=== PATIENT | female | born 1965 | race Caucasian/White ===

== ENCOUNTER 2022-11-20 19:58 | Emergency (ER) | payer OTHER ==
[2022-11-20 20:57] LABS: Urine Blood 1+ (Negative); Urine Glucose Negative (Negative); Urine Protein 2+ (Negative); Urine Specific Gravity >=1.030 (1.005-1.030); Urine pH 5.5 (5.0-7.0)
[2022-11-20 21:06] LABS: Urine Specific Gravity/Preg >1.030 (1.005-1.030)
[2022-11-20 21:07] LABS: Absolute Lymphocytes (CBC) 0.7 K/uL (0.7-4.9); Hematocrit 43.1 % (36.0-45.0); Lymphocytes % 10.9 % (15.3-44.8); MCV 91.9 fL (80-100); MPV 8.7 fL (7.6-11.3)
[2022-11-20] MEDS ORDERED: FAMOTIDINE 20 MG/2 ML VIAL IV ONE (21:07)
[2022-11-20 21:17] LABS: Urine Bacteria None Seen /HPF (<20); Urine Crystals Unidentified Few /HPF (None Seen); Urine Mucus 3+ /HPF (None Seen)
[2022-11-20 21:23] LABS: Albumin 3.8 g/dL (3.4-5.0); Bilirubin Total 0.4 mg/dL (0.2-1.0); Potassium 3.4 mmol/L (3.5-5.1); Protein, Total 7.4 g/dL (6.4-8.2)
[2022-11-20] MEDS ORDERED: METOCLOPRAMIDE 10 MG/2mL INJ ONE (21:41)
[2022-11-20] MEDS ORDERED: KETOROLAC 30 MG/ML INJ ONE (21:41)
[2022-11-20] MEDS ORDERED: DICYCLOMINE HCL 20 MG/2 ML AMP IM ONE (21:42)
[2022-11-20] MEDS ORDERED: NA CHLORIDE 0.9% 1,000 ML ONE (21:42)
--- NOTE | 2022-11-20 22:08 | RAD REPORT ---
EXAM DESCRIPTION: CT - Abdomen Pelvis W Contrast - 11/20/2022 9:42 pm CLINICAL HISTORY: Abdominal pain COMPARISON: none. TECHNIQUE: Computed axial tomography of the abdomen pelvis was obtained. 100 cc Isovue-300 was admin istered intravenously. Oral contrast was not requested which limits evaluation of bowel and appendix All CT scans are performed using dose optimization technique as appropriate and may include automated exposure control or mA/KV adjustment according to patient size. FINDINGS: The liver, spleen, pancreas, adrenal and kidneys appear unremarkable. There is no evidence of diverticulitis. A normal appendix Cholecystectomy. Hysterectomy. No adnexal mass Mild compression L1 vertebral body. Tiny umbilical hernia IMPRESSION: Mild compression L1 vertebral body probably chronic No acute abnormality is displayed
[2022-11-20 23:31] LABS: SARS-COV-2 RT PCR NEGATIVE (NEGATIVE)
--- NOTE | 2022-11-21 00:12 | EDPHYS ---
Physician Documentation [facility] Name: Sara Maxwell Age: 56 yrs Sex: Female : 1965 Arrival Date: 11/20/2022 Time: 20:01 Bed 6 Private MD: ED Physician Caity Cheung HPI: 11/20 20:20 This 56 yrs old Female presents to ER via Ambulatory with complaints of cp Nausea/Vomiting/Diarrhea, Fever. 20:20 The patient presents to the emergency department with nausea, that is moderate, cp vomiting, that is continuous, 20 times today, diarrhea, that is intermittent, 5 times today, abdominal pain, of the abdomen diffusely, described as crampy. Onset: The symptoms/episode began/occurred 3 day(s) ago. Associated signs and symptoms: Pertinent positives: cough. 20:20 Severity of symptoms: in the emergency department the symptoms are unchanged despite cp home interventions. Historical: - Allergies: 20:13 Codeine; pf1 - PMHx: 23:57 None; ke1 - PSHx: 23:57 HYSTERECTOMY; ke1 ROS: 20:25 Constitutional: Positive for body aches, poor PO intake, Negative for fever. cp 20:25 Eyes: Negative for injury, pain, redness, and discharge. cp 20:25 ENT: Negative for drainage from ear(s), ear pain, difficulty swallowing, difficulty handling secretions. 20:25 Cardiovascular: Negative for chest pain, edema, palpitations. 20:25 Respiratory: Positive for cough, Negative for shortness of breath, wheezing. 20:25 Abdomen/GI: Positive for abdominal pain, nausea and vomiting, diarrhea, anorexia, Negative for constipation, hematemesis, black/tarry stool. 20:25 : Negative for urinary symptoms. 20:25 Neuro: Positive for headache, Negative for altered mental status. 20:25 All other systems are negative. Exam: 20:30 Constitutional: The patient appears in no acute distress, alert, awake, cp non-diaphoretic, non-toxic, well developed, well nourished, obese. 20:30 Head/Face: Normocephalic, atraumatic. cp 20:30 Eyes: Periorbital structures: appear normal, Conjunctiva: normal, no exudate, no injection, Sclera: no appreciated abnormality, Lids and lashes: appear normal, bilaterally. 20:30 ENT: External ear(s): are unremarkable, Nose: is normal, Mouth: is normal, Posterior pharynx: is normal, airway is patent, no erythema, no exudate. 20:30 Neck: ROM/movement: is normal, is supple, without pain, no range of motions limitations, no meningismus. 20:30 Chest/axilla: Inspection: normal. 20:30 Cardiovascular: Rate: tachycardic, Rhythm: regular, Edema: is not appreciated, JVD: is not appreciated. 20:30 Respiratory: the patient does not display signs of respiratory distress, Respirations: normal, no use of accessory muscles, no retractions, labored breathing, is not present, Breath sounds: bronchial sounds, that are mild, are heard diffusely, decreased breath sounds, are not appreciated, stridor, is not appreciated, wheezing: is not appreciated. 20:30 Abdomen/GI: Inspection: abdomen appears normal, Bowel sounds: active, all quadrants, Palpation: soft, in all quadrants, moderate abdominal tenderness, in all quadrants, rebound tenderness, is not appreciated, involuntary guarding, is not appreciated. 20:30 Back: CVA tenderness, is absent. 20:30 Neuro: Orientation: to person, place \T\ time. Mentation: is normal, Motor: moves all fours, strength is normal, Sensation: is normal. Vital Signs: 20:07 BP 151 / 93; Pulse 105; Resp 18; Temp 99; Pulse Ox 96% ; Weight 117.93 kg; Height 5 ft. pf1 11 in. (180.34 cm); Pain 10/10; 21:33 BP 132 / 79; Pulse 78; Resp 17; Pulse Ox 97% on R/A; ke1 23:58 BP 117 / 70; Pulse 83; Resp 17; Pulse Ox 98% ; ke1 20:07 Body Mass Index 36.26 (117.93 kg, 180.34 cm) pf1 MDM: 20:13 Patient medically screened. cp 21:00 Differential diagnosis: Nonspecific abd pain, gastritis, cholecystitis, pancreatitis, cp appendicitis, viral gastroenteritis, gastroenteritis. 11/21 00:10 Data reviewed: vital signs, nurses notes, lab test result(s), radiologic studies, CT cp scan, plain films. 00:10 Consideration of Admission/Observation Escalation of care including cp admission/observation considered. I considered the following discharge prescriptions or medication management in the emergency department Medications were administered in the Emergency Department. See MAR. Independent interpretation of the following test(s) in the Emergency Department X-Ray: My interpretation is chest negative for infiltrates. Counseling: I had a detailed discussion with the patient and/or guardian regarding: the historical points, exam findings, and any diagnostic results supporting the discharge/admit diagnosis, lab results, radiology results, to return to the emergency department if symptoms worsen or persist or if there are any questions or concerns that arise at home. Response to treatment: the patient's symptoms have markedly improved after treatment, and as a result, I will discharge patient. Special discussion: Based on the patient's Hx, exam, and Dx evaluation, there is no indication for emergent surgery or inpatient Tx. It is understood by the patient/guardian that if the Sx's persist or worsen they need to return immediately for re-evaluation. 11/20 20:46 Order name: CBC with Diff; Complete Time: 21:29 cp 11/20 21:29 Interpretation: Normal except: ALESIA% 82.0; LYM% 10.9. cp 11/20 20:46 Order name: CMP; Complete Time: 21:29 cp 11/21 00:09 Interpretation: Normal except: K 3.4; CL 108; GLUC 131; GFR 70; AST 14; GLOB 3.6. cp 11/20 20:46 Order name: Lipase; Complete Time: 21:29 cp 11/20 20:46 Order name: Urine Microscopic Only; Complete Time: 21:29 cp 11/20 20:57 Order name: Urine Dipstick-Ancillary; Complete Time: 21:29 EDMS 11/20 20:57 Order name: Urine --Ancillary (enter results); Complete Time: 21:29 tw5 11/20 20:46 Order name: CT Abd/Pelvis - IV Contrast Only; Complete Time: 22:41 cp 11/20 22:42 Order name: XRAY Chest (1 view) cp 11/20 22:42 Order name: COVID-19/FLU A+B; Complete Time: 00:09 cp 11/20 20:46 Order name: IV Saline Lock; Complete Time: 21:01 cp 11/20 20:46 Order name: Labs collected and sent; Complete Time: 21:01 cp 11/20 20:46 Order name: Urine Dipstick-Ancillary (obtain specimen); Complete Time: 20:58 cp 11/20 20:46 Order name: Urine Test (obtain specimen); Complete Time: 20:58 cp 11/20 22:41 Order name: PO challenge; Complete Time: 00:02 cp Administered Medications: 11/20 21:06 Drug: Pepcid (famotidine) 20 mg Route: IVP; Site: left antecubital; ke1 21:53 Drug: Ketorolac 15 mg Route: IVP; Site: left antecubital; ke1 23:04 Follow up: Response: Pain is decreased ke1 21:54 Drug: Reglan (metoCLOPramide) 10 mg Route: IVP; Site: left antecubital; ke1 23:04 Follow up: Response: Nausea is decreased ke1 21:54 Drug: NS 0.9% 1000 ml Route: IV; Rate: 500 ml/hr; Site: left antecubital; ke1 21:54 Drug: Dicyclomine 20 mg Route: IM; Site: left deltoid; ke1 23:04 Follow up: Response: Marked relief of symptoms ke1 11/21 00:19 Drug: Potassium Effervescent Tablet 25 mEq Route: PO; ke1 00:21 Follow up: Response: No adverse reaction ke1 Disposition Summary: 11/21/22 00:11 Discharge Ordered Location: Home cp Problem: new cp Symptoms: have improved cp Condition: Stable cp Diagnosis - Nausea with vomiting, unspecified cp - Diarrhea, unspecified cp - Cough cp Followup: cp - With: Private Physician - When: 2 - 3 days - Reason: Worsening of condition Discharge Instructions: - Discharge Summary Sheet cp - Diarrhea, Adult cp - Nausea and Vomiting, Adult cp - Cough, Adult cp Forms: - Medication Reconciliation Form cp - Thank You Letter cp - Antibiotic Education cp - Prescription Opioid Use cp Prescriptions: - Zofran 4 mg Oral Tablet - take 1 tablet by ORAL route every 12 hours As needed; 20 tablet; Refills: 0, cp Product Selection Permitted - Lomotil 2.5-0.025 mg Oral Tablet - take 1 tablet by ORAL route every 6 hours As needed; 20 tablet; Refills: 0, cp Product Selection Permitted Signatures: Dispatcher [employer] EDEfren Flores PA PA cp Ebrottie, Kouassi RN RN ke1 Naheed keller RN RN pf1 Corrections: (The following items were deleted from the chart) 11/22 00:11 11/20 20:20 The patient presents to the emergency department with nausea, that is cp moderate, vomiting, that is continuous, 20 times today, diarrhea, that is intermittent, 3 times today, abdominal pain, of the abdomen diffusely, described as crampy, cp
--- NOTE | 2022-11-21 00:12 | ER ---
Nurse's Notes [facility] Name: Sara Maxwell Age: 56 yrs Sex: Female : 1965 Arrival Date: 11/20/2022 Time: 20:01 Bed 6 Private MD: Diagnosis: Nausea with vomiting, unspecified;Diarrhea, unspecified;Cough Presentation: 11/20 20:07 Chief complaint: Patient states: Patient C/O cough,onset 3 days with fever started last pf1 night, diarrhea x 5 episodes with vomiting x 20 episodes within the past 24 hours with DUKE pain of 10 and generalized abdominal spasms,onset last night. Coronavirus screen: Vaccine status: Patient reports receiving the 2nd dose of the covid vaccine. Client denies travel out of the [place] in the last 14 days. Client presents with at least one sign or symptom that may indicate coronavirus-19. Ebola Screen: Patient negative for fever greater than or equal to 101.5 degrees Fahrenheit, and additional compatible Ebola Virus Disease symptoms. Initial Sepsis Screen: Does the patient meet any 2 criteria? No. Patient's initial sepsis screen is negative. Does the patient have a suspected source of infection? No. Patient's initial sepsis screen is negative. Risk Assessment: Do you want to hurt yourself or someone else? Patient reports no desire to harm self or others. 20:07 Method Of Arrival: Ambulatory pf1 20:07 Acuity: JENNIFER 3 pf1 20:20 Onset of symptoms was November 17, 2022. ke1 Triage Assessment: 20:20 General: Appears uncomfortable, Behavior is appropriate for age. Pain: Complains of ke1 pain in ABDOMEN Pain currently is 6 out of 10 on a pain scale. at worst was 9 out of 10 on a pain scale. level that patient reports is acceptable is 4 out of 10 on a pain scale. GI: Reports nausea. Historical: - Allergies: 20:13 Codeine; pf1 - PMHx: 23:57 None; ke1 - PSHx: 23:57 HYSTERECTOMY; ke1 Screenin:20 [facility] ED Fall Risk Assessment (Adult) History of falling in the last 3 months, ke1 including since admission No falls in past 3 months (0 pts) Confusion or Disorientation No (0 pts) Intoxicated or Sedated No (0 pts) Impaired Gait No (0 pts) Mobility Assist Device Used No (0 pt) Altered Elimination No (0 pt) Score/Fall Risk Level 0 - 2 = Low Risk Oriented to surroundings, Maintained a safe environment. Abuse screen: Denies threats or abuse. Nutritional screening: No deficits noted. Tuberculosis screening: No symptoms or risk factors identified. Assessment: 20:20 GI: Abdomen is round non-distended. ke1 23:58 Reassessment: Patient denies pain at this time. Patient states feeling better. Patient ke1 states symptoms have improved. 11/21 00:21 Reassessment: Patient denies pain at this time. Patient states feeling better. Patient ke1 states symptoms have improved. Vital Signs: 11/20 20:07 BP 151 / 93; Pulse 105; Resp 18; Temp 99; Pulse Ox 96% ; Weight 117.93 kg; Height 5 ft. pf1 11 in. (180.34 cm); Pain 10/10; 21:33 BP 132 / 79; Pulse 78; Resp 17; Pulse Ox 97% on R/A; ke1 23:58 BP 117 / 70; Pulse 83; Resp 17; Pulse Ox 98% ; ke1 20:07 Body Mass Index 36.26 (117.93 kg, 180.34 cm) pf1 ED Course: 20:01 Patient arrived in ED. jj6 20:08 Efren Khan PA is PHCP. cp 20:08 Caity Cheung MD is Attending Physician. cp 20:13 Triage completed. pf1 20:20 Arm band placed on. ke1 20:20 Patient has correct armband on for positive identification. ke1 20:47 Esha Melo, RN is Primary Nurse. ke1 20:58 Urine Microscopic Only Sent. tw5 21:01 Inserted saline lock: 20 gauge in left antecubital area, using aseptic technique. ke1 21:01 CBC with Diff Sent. ke1 21:01 CMP Sent. ke1 21:02 Lipase Sent. ke1 21:43 CT Abd/Pelvis - IV Contrast Only In Process Unspecified. EDMS 22:57 XRAY Chest (1 view) In Process Unspecified. EDMS 23:04 COVID-19/FLU A+B Sent. ke1 11/21 00:21 No provider procedures requiring assistance completed. IV discontinued. ke1 Administered Medications: 11/20 21:06 Drug: Pepcid (famotidine) 20 mg Route: IVP; Site: left antecubital; ke1 21:53 Drug: Ketorolac 15 mg Route: IVP; Site: left antecubital; ke1 23:04 Follow up: Response: Pain is decreased ke1 21:54 Drug: Reglan (metoCLOPramide) 10 mg Route: IVP; Site: left antecubital; ke1 23:04 Follow up: Response: Nausea is decreased ke1 21:54 Drug: NS 0.9% 1000 ml Route: IV; Rate: 500 ml/hr; Site: left antecubital; ke1 21:54 Drug: Dicyclomine 20 mg Route: IM; Site: left deltoid; ke1 23:04 Follow up: Response: Marked relief of symptoms ke1 11/21 00:19 Drug: Potassium Effervescent Tablet 25 mEq Route: PO; ke1 00:21 Follow up: Response: No adverse reaction ke1 Medication: 00:21 VIS not applicable for this client. ke1 Outcome: 00:11 Discharge ordered by MD. storm 00:21 Discharged to home ambulatory. ke1 00:21 Condition: good 00:21 Discharge instructions given to patient. 00:22 Patient left the ED. ke1 Signatures: Dispatcher [employer] EDMS Efren Khan PA PA cp Wood, Tiffany tw5 Kendra Abbott6 Esha Melo RN RN ke1 Naheed keller RN RN pf1
[2022-11-21] MEDS ORDERED: POTASSIUM 25 MEQ EFFERV TAB ONE (00:17)
[2022-11-21 00:25] VITALS: TEMP 99
[2022-11-21 00:27] VITALS: BP 117/70; O2SAT 98
--- NOTE | 2022-11-22 12:06 | RAD REPORT ---
EXAM DESCRIPTION: RAD - Chest Single View - 11/20/2022 10:55 pm CLINICAL HISTORY: 56 years Female, COUGH TECHNIQUE: 1 view (Single frontal view of the chest) COMPARISON: None. FINDINGS: LINES AND TUBES: None. CARDIOVASCULAR STRUCTURES: Normal heart size. No pulmonary venous congestion. LUNGS: No confluent areas of acute consolidation. PLEURA: No layering pleural effusions. No pneumothorax. BONES: No acute osseous abnormality of the thorax. IMPRESSION: 1. No acute cardiopulmonary disease. Electronically signed by: Hung Meléndez MD 11/20/2022 11:16 PM PROGRAM OR PROJECT ADMINISTRATOR Due to temporary technical issues with the PACS/Fluency reporting system, reports are being signed by the in house radiologists without review as a courtesy to insure prompt reporting. The interpreting radiologist is fully responsible for the content of the report.
== END 2022-11-21 00:22 | disposition home or self-care (01) ==
LOC: EDBD 19:58 → ER 19:58
DX: R11.2 Nausea with vomiting, unspecified (principal); R19.7 Diarrhea, unspecified; R05.9 Cough, unspecified; Z20.822 Contact with and (suspected) exposure to COVID-19; Z88.5 Allergy status to narcotic agent
CPT/HCPCS: 85025; 36415; 81025; 83690; 80053; 0240U; 74177; 71045; 96375; 96372; 96374; 99284; Q9967; J2765; J0500; J7030; 81003; 81015